=== PATIENT | female | born 1995 | race Caucasian/White ===

== ENCOUNTER → 2019-12-18 | Day surgery (SDC) | payer OTHER ==
[2019-12-16 11:10] LABS: Basophils # (auto) 0 uL; Eosinophils # (auto) 0 uL; Hematocrit 40.4 % (36.0-46.0); Hemoglobin 12.8 g/dL (12.2-16.2); Lymphocytes # (auto) 1.8 uL; Mean Corpuscular Hemoglobin 26.2 pg (28.0-32.0); Mean Corpuscular Hgb Conc. 31.8 g/dL (32.0-36.0); Monocytes # (auto) 0.3 uL; Neutrophils # (auto) 1.8 uL
[2019-12-16 11:13] LABS: Eosinophils % (auto) 1.2 % (0.0-7.0); Lymphocytes % (auto) 45.9 % (10.0-50.0); Mean Corpuscular Volume 82.4 fL (80.0-100.0); Monocytes % (auto) 7.3 % (0.0-12.0); Neutrophils % (auto) 44.6 % (37.0-80.0); Nucleated Red Blood Cells % 0.1 %; Platelet Count (auto) 219 10^3/uL (140-450); Red Blood Cells 4.91 10^6/uL (4.0-5.20); Red Cell Distribution Width 15.1 % (11.8-14.3)
[2019-12-16 11:46] LABS: INR 1.14 (0.9-1.15); Partial Thromboplastin Time 26.8 sec (23.64-32.05)
[2019-12-16 11:57] LABS: Albumin 4.2 g/dL (3.4-5.0); Calcium 9.4 mg/dL (8.5-10.1); Potassium 3.7 mmol/L (3.5-5.1)
[2019-12-16 12:00] LABS: BUN/Creatinine Ratio 11.4; Bilirubin, Total 0.7 mg/dL (0.2-1.0); Total Protein 8.6 g/dL (6.4-8.2)
[2019-12-16 12:19] LABS: Urine Specific Gravity 1.013 (1.001-1.035)
[2019-12-16 12:41] LABS: Urine Bacteria FEW /hpf (None Seen); Urine Blood Negative /uL (Negative); Urine WBC <1 /hpf (0 - 5)
[~2019-12-18] VITALS: Ht 165.1 cm; Wt 52.2 kg
[~2019-12-18] MED LIST: BUPIVACAINE HCL 50 ML ONE; HYDROmorphone HCL 2 MG/ML VL IV PRN; KETOROLAC TROMETH 15 mg/ml 1ML VL IV ONE; LIDOCAINE 1% HCL (LOCAL ANESTH.) INJ 20ML MDV ONE; MEPERIDINE HCL (25 MG/ML) 1ML VIAL ONE; METOCLOPRAMIDE HCL 5MG/ml INJ 2ml VIAL IV PRN; MIDAZOLAM HCL 1MG/1ML-2 ML VIAL ONE; MORPHINE SULFATE 4 MG/ML SYR/VIAL IV PRN; ONDANSETRON HCL 4 MG/2 ML VIAL ONE; PROPOFOL 10 MG/ML 20 ML IV ONE; ceFAZolin 1GM/50ML 50 ML IV ONE; fentaNYL CITRATE 100 MCG/2 ML VL IV PRN; fentaNYL CITRATE 100 MCG/2 ML VL ONE
[2019-12-18 14:15] VITALS: BP 113/74
== END | disposition home or self-care (01) ==
LOC: SUR 07:20
PROVIDERS: ATTEND Podiatrist
DX: M21.41 Flat foot [pes planus] (acquired), right foot (principal); M20.11 Hallux valgus (acquired), right foot; D64.9 Anemia, unspecified
CPT/HCPCS: 28297; 36415; 73620; 80053; 81001; 84702; 85025; 85610; 85730; C1713; J0690; J1885; J2001; J2175; J2250; J2405; J2704; J2765; J3010; J3490; J7030; 76001